=== PATIENT | female | born 1990 | race Caucasian/White ===

== ENCOUNTER 2018-11-21 18:28 | Emergency (ER) | payer OTHER ==
--- NOTE | 2018-11-21 18:41 | ER Report ---
History and Physical Time Seen By MD: 18:41 Hx. of Stated Complaint: pt presents with 45 min of chest pain while at rest, with pain down L ARM. PAIN IS GONE NOW. INITALLY SOB, NAUSEA, WITHOUT VOMITING, NO DIAPHORESIS HPI/ROS CHIEF COMPLAINT: Chest pain HISTORY OF PRESENT ILLNESS: This is a 28-year-old female. She had chest pain, sharp and going to the left arm about 45 minutes prior to arrival. Pain worsened with deep breaths. Pain is now gone. No history of heart problems. She did go for an hour long run this afternoon without any problems. She is not short of breath at this time but did have a little while the pain was present. No fevers or chills. No cough. No history of blood clots personally or in the family. No history of heart disease other than an much older adults. No nausea or vomiting at this time but she did have some nausea earlier. Normal bowel movements. No problems with urination. Allergies: Coded Allergies: No Known Drug Allergies (Unverified , 11/21/18) Home Meds No Active Prescriptions or Reported Meds Reviewed Nurses Notes: Yes Constitutional Vital Sign - Last 24 Hours 11/21/18 11/21/18 11/21/18 11/21/18 18:35 18:37 18:58 19:00 Temp 98.1 Pulse 69 65 Resp 16 11 B/P (MAP) 139/90 139/90 (106) 127/97 (107) Pulse Ox 100 100 O2 Delivery Room Air 11/21/18 11/21/18 11/21/18 11/21/18 19:28 19:30 19:58 20:00 Pulse 72 70 Resp 11 12 B/P (MAP) 119/84 (96) 120/87 (98) Pulse Ox 98 98 Intake and Output 11/21/18 11/21/18 11/22/18 15:00 23:00 07:00 Intake Total 1000 ml Balance 1000 ml Physical Exam General Appearance: The patient is alert. No acute distress. Eyes: Pupils are equal, round. No pallor, injection or icterus. ENT: Mucous membranes are moist. Normal oral mucosa. Posterior oropharynx is normal. Neck: Supple and non tender. Respiratory: Lungs are clear to auscultation. Cardiovascular: Regular rate and rhythm. No murmurs, gallops or rubs. Normal capillary refill. No edema. Gastrointestinal: Abdomen is soft and non tender. Nondistended. Normal active bowel sounds. No costovertebral angle tenderness with percussion. Neurological: Alert and oriented x3. Skin: Warm and dry. Musculoskeletal: No tenderness in palpation of the cervical, thoracic and lumbar spine. DIFFERENTIAL DIAGNOSIS: After history and physical exam, differential diagnosis was considered for chest pain including but not limited to myocardial ischemia, pericarditis pulmonary embolus, chest wall pain, pleural inflammation and pulmonary infectious causes. Medical Decision Making Data Points Result Diagram: 11/21/18184911/21/181849 Laboratory Hematology Test 11/21/18 18:50 Red Blood Count 4.99 M/uL (4.17-5.56) Mean Corpuscular Volume 95.7 fL (80.0-96.0) Mean Corpuscular Hemoglobin 32.8 pg (26.0-33.0) Mean Corpuscular Hemoglobin Concent 34.3 g/dL (32.0-36.0) Red Cell Distribution Width 12.5 % (11.5-14.5) Mean Platelet Volume 7.8 fL (7.2-11.1) Neutrophils (%) (Auto) 61.2 % (39.4-72.5) Lymphocytes (%) (Auto) 31.6 % (17.6-49.6) Monocytes (%) (Auto) 5.8 % (4.1-12.4) Eosinophils (%) (Auto) 0.4 % (0.4-6.7) Basophils (%) (Auto) 1.0 % (0.3-1.4) Nucleated RBC Relative Count (auto) 0.0 /100WBC Neutrophils # (Auto) 4.5 K/uL (2.0-7.4) Lymphocytes # (Auto) 2.3 K/uL (1.3-3.6) Monocytes # (Auto) 0.4 K/uL (0.3-1.0) Eosinophils # (Auto) 0.0 K/uL (0.0-0.5) Basophils # (Auto) 0.1 K/uL (0.0-0.1) Nucleated RBC Absolute Count (auto) 0.00 K/uL D-Dimer Quantitative (PE/DVT) < 0.27 ug/ml (0-0.50) Sodium Level 141 mmol/L (137-145) Potassium Level 3.3 mmol/L (3.5-5.0) Chloride Level 104 mmol/L (98-107) Carbon Dioxide Level 26 mmol/L (22-31) Blood Urea Nitrogen 16 mg/dl (7-18) Creatinine 0.70 mg/dl (0.52-1.04) Glomerular Filtration Rate Calc > 60.0 Random Glucose 86 mg/dl (75-110) Calcium Level 10.2 mg/dl (8.4-10.2) Total Bilirubin 0.2 mg/dl (0.2-1.3) Aspartate Amino Transf (AST/SGOT) 23 U/L (0-35) Alanine Aminotransferase (ALT/SGPT) 12 U/L (0-56) Alkaline Phosphatase 63 U/L (0-126) Troponin I < 0.012 ng/ml Total Protein 8.8 g/dl (6.3-8.2) Albumin 5.4 g/dl (3.5-5.0) Chemistry Test 11/21/18 18:50 White Blood Count 7.4 k/uL (4.5-11.0) Red Blood Count 4.99 M/uL (4.17-5.56) Hemoglobin 16.4 g/dL (12.0-16.0) Hematocrit 47.7 % (34.0-47.0) Mean Corpuscular Volume 95.7 fL (80.0-96.0) Mean Corpuscular Hemoglobin 32.8 pg (26.0-33.0) Mean Corpuscular Hemoglobin Concent 34.3 g/dL (32.0-36.0) Red Cell Distribution Width 12.5 % (11.5-14.5) Platelet Count 373 K/uL (150-450) Mean Platelet Volume 7.8 fL (7.2-11.1) Neutrophils (%) (Auto) 61.2 % (39.4-72.5) Lymphocytes (%) (Auto) 31.6 % (17.6-49.6) Monocytes (%) (Auto) 5.8 % (4.1-12.4) Eosinophils (%) (Auto) 0.4 % (0.4-6.7) Basophils (%) (Auto) 1.0 % (0.3-1.4) Nucleated RBC Relative Count (auto) 0.0 /100WBC Neutrophils # (Auto) 4.5 K/uL (2.0-7.4) Lymphocytes # (Auto) 2.3 K/uL (1.3-3.6) Monocytes # (Auto) 0.4 K/uL (0.3-1.0) Eosinophils # (Auto) 0.0 K/uL (0.0-0.5) Basophils # (Auto) 0.1 K/uL (0.0-0.1) Nucleated RBC Absolute Count (auto) 0.00 K/uL D-Dimer Quantitative (PE/DVT) < 0.27 ug/ml (0-0.50) Glomerular Filtration Rate Calc > 60.0 Calcium Level 10.2 mg/dl (8.4-10.2) Total Bilirubin 0.2 mg/dl (0.2-1.3) Aspartate Amino Transf (AST/SGOT) 23 U/L (0-35) Alanine Aminotransferase (ALT/SGPT) 12 U/L (0-56) Alkaline Phosphatase 63 U/L (0-126) Troponin I < 0.012 ng/ml Total Protein 8.8 g/dl (6.3-8.2) Albumin 5.4 g/dl (3.5-5.0) Coagulation Test 11/21/18 18:50 D-Dimer Quantitative (PE/DVT) < 0.27 ug/ml EKG/Imaging EKG Interpretation 12 lead EKG: Rhythm: Normal sinus rhythm, rate 70 to [place]: normal QRS: normal ST segments: normal Imaging Examination: CHEST PA LAT Comparison: None. History: Sudden onset chest pain. Findings: No consolidation, nodule, or peribronchial inflammation. No pneu mothorax, edema, or effusion. Cardiac and hilar contour size is normal. Visualized bowel gas pattern is unremarkable. Osseous structures are intact. IMPRESSION: Negative chest. Report Dictated By: Jovi Shankar MD at 11/21/2018 8:05 PM ED Course/Re-evaluation Clinical Indication for ER IV: Hydration, IV Access ED Course Labs unremarkable other than incidentally noted slightly low potassium at 3.3. Troponin and d-dimer are negative. Pain continues to the absent at this time. Discussed other possible causes. Undifferentiated chest pain, possibly inflammatory versus GI related. See instructions below Decision to Disposition Date: November 21, 2018 Decision to Disposition Time: 20:44 Depart Departure Latest Vital Signs Vital Signs Date Time Temp Pulse Resp B/P (MAP) Pulse Ox O2 Delivery O2 Flow Rate FiO2 11/21/18 20:00 120/87 (98) 11/21/18 19:58 70 12 98 11/21/18 18:35 98.1 Room Air Impression: Primary Impression: Chest pain Condition: Improved Disposition: HOME OR SELF-CARE New Scripts No Active Prescriptions or Reported Meds Patient Instructions: Chest Pain (ED) Additional Instructions: Your workup for chest pain tonight did not reveal a definitive cause, so we call this undifferentiated chest pain. We did not find evidence of heart attack, blood clots, pneumonia, or other problems with the lungs. We cannot really tell what caused the pain. We would consider gastrointestinal related pain such as reflux, inflammation of the stomach or esophagus or muscle spasms as possibilities. Inflammation in the lungs or chest wall could also cause this. We recommend trying anti-inflammatories such as Ibuprofen with food. You can also try and anti-acid medicine such as Zantac or Pepcid. Return for worsening symptoms such as worsening chest pain or shortness of breath, and consider seeing your primary care provider next week for re- evaluation. Problem Qualifiers Primary Impression: Chest pain Chest pain type: unspecified Qualified Codes: R07.9 - Chest pain, unspecified LAURA SOLER MD November 21, 2018 18:41
[2018-11-21] MEDS ORDERED: NS(*) 0.9% 1000 ML BAG 1,000 ML IV ONE (19:25)
[2018-11-21 19:37] LABS: PLATELET COUNT, AUTOMATED 373 K/uL (150-450)
[2018-11-21 20:00] VITALS: BP 120/87
--- NOTE | 2018-11-21 20:11 | RADIOLOGY IMAGING REPORT ---
FACILITY: [facility] - [place] PATIENT NAME: Joanna Aquino : 1990 MR: [id number] V: [id number] EXAM DATE: ORDERING PHYSICIAN: LAURA SOLER TECHNOLOGIST: Location: [facility] - [place] Patient: Joanna Aquino : 1990 Visit/Account:[id number] Date of Sevice: 11/21/2018 Examination: CHEST PA LAT Comparison: None. History: Sudden onset chest pain. Findings: No consolidation, nodule, or peribronchial inflammation. No pneumothorax, edema, or effusi on. Cardiac and hilar contour size is normal. Visualized bowel gas pattern is unremarkable. Osseou s structures are intact. IMPRESSION: Negative chest. Report Dictated By: Jovi Shankar MD at 11/21/2018 8:05 PM Report E-Signed By: Jovi Shankar MD at 11/21/2018 8:08 PM WSN:[id number]
--- NOTE | 2018-11-22 00:01 | EKG ---
FACILITY: [facility] - [place] PATIENT NAME: ANJANA SCHWARTZ : [id number] MR: [id number] V: [id number] EXAM DATE: ORDERING PHYSICIAN: LAURA SOLER TECHNOLOGIST: LISA Garay Reason : CP Blood Pressure : / mmHG Vent. Rate : 072 BPM Atrial Rate : 072 BPM P-R Int : 166 ms QRS Dur : 074 ms QT Int : 404 ms P-R-T Axes : 054 065 067 degrees QTc Int : 442 ms Normal sinus rhythm Normal ECG No previous ECGs available Confirmed by DELANO ZIMMERMAN ([id number]) on 11/22/2018 7:44:46 PM Referred By: Confirmed By:DELANO ZIMMERMAN
== END 2018-11-21 21:00 | disposition home or self-care (01) ==
LOC: ER 18:39
DX: R07.9 Chest pain, unspecified (principal)
CPT/HCPCS: 71046; 84484; 85025; 85379; 93005; 96360; 99284; J7030; 82040; 82247; 82310; 82374; 82435; 82565; 82947; 84075; 84132; 84155; 84295; 84450; 84460; 84520